=== PATIENT | male | born 1960 | race Caucasian/White ===

== ENCOUNTER → 2019-01-05 | Outpatient (REF) | payer OTHER ==
[2014-07-13 17:49] VITALS: BMI 39.3
[~2019-01-05] MED LIST: ALP5 PO; ARIP20TA11 PO; CEFU500T50 PO; CITA-141 PO; CLON-1 PO; KET10 PO; LEV175 PO; LOR5 PO; LOR5/325 PO; MODA200T39 PO; OXYC-854 PO; PER PO; PRED-1 PO; SILD25TA6 PO; WARF5TAB23 PO; ZIPR40CA12 PO; ZOLP-350 PO; [UNRECOGNIZED DRUG - CODE] PO
== END ==
LOC: ZZSENDIN 13:29
PROVIDERS: ATTEND Family Medicine
DX: Z12.5 Encounter for screening for malignant neoplasm of prostate (principal)
CPT/HCPCS: 84153